=== PATIENT | female | born 1975 | race Caucasian/White ===

== ENCOUNTER 2016-06-29 13:50 | Emergency (ER) | payer BC ==
[2016-06-29 14:32] VITALS: BP 138/102
[2016-06-29] MEDS ORDERED: Ibuprofen TAB* 400 MG PO ONE (15:35)
--- NOTE | 2016-06-29 16:35 | RAD ---
INDICATION: Left foot injury. COMPARISON: Comparison is made with a prior study from April 08, 2013. TECHNIQUE: 3 views of the left foot were obtained. FINDINGS: There is soft tissue swelling present over the dorsal aspect of the midfoot. There is cortical irregularity and mild sclerosis and decreased density present at the base of the second metatarsal likely representing chronic change although a nondisplaced fracture cannot be excluded. There are postsurgical changes present. The patient is status post osteotomy of the first proximal phalanx. The osteotomy site appears healed there is a single surgical screw present. There are 2 surgical screws spanning the first tarsometatarsal joint. 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 IMPRESSION: 1. CORTICAL IRREGULARITY AND HETEROGENEOUS BONE DENSITY AT THE BASE OF THE SECOND METATARSAL LIKELY REPRESENTING CHRONIC CHANGE ALTHOUGH A NONDISPLACED FRACTURE CANNOT BE EXCLUDED. 2. POST SURGICAL CHANGES.
--- NOTE | 2016-06-29 17:07 | UC ---
Lower Extremity/Ankle HPI - HPI Summary HPI Summary: HISTORY OF (BILATERAL) BUNION SURGERY ON (1ST METATARSAL OF) LEFT FOOT IN 2014. SINCE THAT TIME HAD HAD HISTORY OF MULTIPLE FOOT FRACTURES DUE TO INSTABILITY. YESTERDAY AT 6PM, TWISTED ON FOOT, HAD PAIN IN MIDFOOT AND SWELLING. NO BRUISING. PAIN WITH WEIGHT BEARING. - History of Current Complaint Chief Complaint: UCLowerExtremity Stated Complaint: LEFT FOOT INJURY Time Seen by Provider: 06/29/16 15:18 Hx Obtained From: Patient Hx Last Menstrual Period: 2011 Onset/Duration: Sudden Onset, Lasting Hours, Still Present Severity Initially: Severe Severity Currently: Moderate Aggravating Factor(s): Standing, Ambulation Alleviating Factor(s): Rest, Elevation, Ice Able to Bear Weight: Yes - Risk Factors Gout Risk Factors: Negative DVT Risk Factors: Negative Septic Arthritis Risk Factor: Negative - Allergies/Home Medications Allergies/Adverse Reactions: Allergies Allergy/AdvReac Type Severity Reaction Status Date / Time Erythromycin Allergy Severe Hives Verified 06/29/16 14:25 Penicillins Allergy Severe Hives Verified 06/29/16 14:25 Sulfa Drugs AdvReac GI pain Verified 06/29/16 14:25 moses peppers Allergy Severe Anaphylatic Uncoded 06/29/16 14:25 Shock Home Medications: Home Medications Ginseng [Multi Ginseng] 1 cap PO BID 06/29/16 [History Confirmed 06/29/16] Lamotrigine [Lamictal] 50 mg PO BID 06/29/16 [History Confirmed 06/29/16] Milk Fwtngny-Ohjlzrulh-Tbhvhw- [Milk Thistle Xtra] 1 cap PO BID 06/29/16 [ History Confirmed 06/29/16] Ranitidine TAB (NF) [Zantac TAB (NF)] 150 mg PO BID 06/29/16 [History Confirmed 06/29/16] PMH/Surg Hx/FS Hx/Imm Hx Previously Healthy: Yes Cardiovascular History Of: Reports: Hypertension - Surgical History Surgical History: Yes Surgery Procedure, Year, and Place: sinus surgery/had CSF leak/then had repeat sinus surgery. bunionectomy. ablation - Family History Known Family History: Positive: None, Respiratory Disease - TOBACCO ABUSE - Social History Occupation: Disabled Lives: With Family Alcohol Use: Rare Substance Use Type: None Smoking Status (MU): Heavy Every Day Tobacco Smoker Amount Used/How Often: 1 pack daily When Did the Patient Quit Smoking/Using Tobacco: 10 days ago Cessation Counseling: Patient Advised to Stop - Immunization History Most Recent Influenza Vaccination: not this season Review of Systems Constitutional: Negative Skin: Negative Eyes: Negative ENT: Negative Respiratory: Negative Cardiovascular: Negative Gastrointestinal: Negative Genitourinary: Negative Motor: Negative Neurovascular: Negative Musculoskeletal: Arthralgia - LEFT 2ND METATARSAL Neurological: Negative Psychological: Negative All Other Systems Reviewed And Are Negative: Yes Physical Exam Triage Information Reviewed: Yes Appearance: Well-Appearing, No Pain Distress, Well-Nourished Vital Signs: Initial Vital Signs Temp 987.5 F 06/29/16 14:25 Pulse 100 06/29/16 14:25 Resp 20 06/29/16 14:25 BP 138/102 06/29/16 14:25 Pulse Ox 100 06/29/16 14:25 Vital Signs Reviewed: Yes Eye Exam: Normal Eyes: Positive: Conjunctiva Clear ENT Exam: Normal ENT: Positive: Normal ENT inspection, Hearing grossly normal, Pharynx normal, TMs normal Dental Exam: Normal Neck exam: Normal Neck: Positive: Supple, Nontender, No Lymphadenopathy Respiratory Exam: Normal Respiratory: Positive: Chest non-tender, Lungs clear, Normal breath sounds, No respiratory distress, No accessory muscle use Cardiovascular Exam: Normal Cardiovascular: Positive: RRR, No Murmur, Pulses Normal Abdominal Exam: Normal Abdomen Description: Positive: Nontender, No Organomegaly Musculoskeletal: Positive: ROM Intact, No Edema, Strength Limited @ - LEFT FOOT , Other: - TENDERNESS LEFT 2ND METATARSAL Neurological Exam: Normal Psychological Exam: Normal Skin Exam: Normal Diagnostics - Laboratory Diagnostic Studies Completed/Ordered: FOOT XRAY: CORTICAL IRREGULARITY OF SECOND METATARSAL LIKELY REPRESENTING CHRONIC CHANGE BUT NONDISPLACED FRACTURE CANNOT BE EXCLUDED Lower Extremity Course/Dx - Differential Dx/Diagnosis Differential Diagnosis/HQI/PQRI: Sprain, Strain Provider Diagnoses: LEFT SECOND METATARSAL CLOSED NONDISPLACED FRACTURE Discharge - Discharge Plan Condition: Stable Disposition: HOME Prescriptions: HYDROcodone/ACETAMIN 5-325 MG* [[place] 5-325 TAB*] 1 tab PO BID PRN #10 tab MDD TWO TABS PRN Reason: Pain Patient Education Materials: Foot Fracture in Adults (ED) Referrals: Wander Espinosa MD [Medical Doctor] - Larissa England [Primary Care Provider] -
== END 2016-06-29 17:19 | disposition home or self-care (01) ==
LOC: UCCORT 13:50
DX: S92.325A Nondisplaced fracture of second metatarsal bone, left foot, initial encounter for closed fracture (principal); X50.0XXA Overexertion from strenuous movement or load, initial encounter; I10 Essential (primary) hypertension; Z71.6 Tobacco abuse counseling; F17.210 Nicotine dependence, cigarettes, uncomplicated; Z88.0 Allergy status to penicillin; Z88.1 Allergy status to other antibiotic agents; Z88.2 Allergy status to sulfonamides; Z91.018 Allergy to other foods
CPT/HCPCS: 99213; A9270-GY; G0463

== ENCOUNTER 2017-10-19 11:00 | Emergency (ER) | payer BC, OTHER ==
[2017-10-19 11:44] VITALS: BP 132/83
--- NOTE | 2017-10-19 13:02 | RAD ---
Indication: Left ankle injury and fall 3 views of left ankle demonstrate soft tissue swelling laterally. No fracture is noted. Prior internal fixation first digit is noted. IMPRESSION: Soft tissue swelling laterally without fracture.
--- NOTE | 2017-10-19 13:03 | RAD ---
Indication: Left foot pain. 3 views of left foot demonstrates fusion of the first digit at the first tarsometatarsal joint and proximal phalanx. Degenerative changes of the second tarsometatarsal joint is noted. No recent fracture is noted. IMPRESSION: Postoperative changes of the first digit and likely degenerative changes of the second tarsometatarsal joint without evidence of recent fracture.
--- NOTE | 2017-10-19 13:50 | ED ---
Lower Extremity - HPI Summary HPI Summary: 42 yo WF c/o left ankle and foot pain after tripping over an jadyn tray and injuring her left ankle and foot, now swollen - History of Current Complaint Chief Complaint: UCLowerExtremity Stated Complaint: LEFT ANKLE COMP Time Seen by Provider: 10/19/17 12:37 Hx Obtained From: Patient Hx Last Menstrual Period: unknown, ablation Mechanism Of Injury: Blunt Trauma Onset of Pain: Hours Onset/Duration: Still Present Severity Currently: Moderate Pain Intensity: 10 Pain Scale Used: 0-10 Numeric Timing: Lasting Hours Character Of Pain: Sharp, Throbbing Associated Signs And Symptoms: Positive: Swelling, Redness, Bruising, Weakness Aggravating Factor(s): Standing, Ambulation Alleviating Factor(s): Rest Able to Bear Weight: Yes - Allergies/Home Medications Allergies/Adverse Reactions: Allergies Allergy/AdvReac Type Severity Reaction Status Date / Time erythromycin base Allergy Hives Verified 10/19/17 11:36 Penicillins Allergy Hives Verified 10/19/17 11:36 Sulfa (Sulfonamide Allergy GI Upset Verified 10/19/17 11:36 Antibiotics) doxycycline AdvReac GI Upset Verified 10/19/17 11:39 moses peppers Allergy Severe Anaphylatic Uncoded 06/29/16 14:25 Shock Home Medications: Home Medications Gabapentin CAP(*) [Neurontin 300 CAP(*)] 300 mg PO TID 10/19/17 [History Confirmed 10/19/17] Ibuprofen TAB* [Motrin TAB* 800 MG] 800 mg PO ONCE 10/19/17 [History Confirmed 10/19/17] Iron [Iron] 90 mg PO DAILY 10/19/17 [History Confirmed 10/19/17] PMH/Surg Hx/FS Hx/Imm Hx Previously Healthy: Yes Cardiovascular History: Reports: Hx Hypertension - Surgical History Surgery Procedure, Year, and Place: sinus surgery/had CSF leak/then had repeat sinus surgery. bunionectomy. ablation Infectious Disease History: No Infectious Disease History: Denies: Hx Clostridium Difficile, Hx Hepatitis, Hx Human Immunodeficiency Virus (HIV), Hx of Known/Suspected MRSA, Hx Shingles, Hx Tuberculosis, Hx Known/ Suspected VRE, Hx Known/Suspected VRSA, History Other Infectious Disease, Traveled Outside the [place] in Last 30 Days - Family History Known Family History: Positive: None, Respiratory Disease - TOBACCO ABUSE - Social History Alcohol Use: Daily Alcohol Amount: 2 beers Substance Use Type: Reports: None Smoking Status (MU): Heavy Every Day Tobacco Smoker Type: Cigarettes Amount Used/How Often: 1 pack daily Review of Systems Constitutional: Negative Positive: Fever Eyes: Negative ENT: Negative Cardiovascular: Negative Respiratory: Negative Gastrointestinal: Negative Positive: Decreased ROM, Edema Positive: Bruising Neurological: Negative Psychological: Normal All Other Systems Reviewed And Are Negative: Yes Physical Exam Triage Information Reviewed: Yes Vital Signs On Initial Exam: Initial Vitals Temp Pulse Resp BP Pulse Ox 37.1 C 88 15 132/83 98 10/19/17 11:36 10/19/17 11:36 10/19/17 11:36 10/19/17 11:36 10/19/17 11:36 Vital Signs Reviewed: Yes Skin: Positive: Warm Head/Face: Positive: Normal Head/Face Inspection Eyes: Positive: Normal ENT: Positive: Normal ENT inspection Respiratory/Lung Sounds: Positive: Clear to Auscultation Cardiovascular: Positive: Normal Musculoskeletal: Positive: Normal, Pain @, Edema Left - ankle and contusion on left lateral malleolus, NVI Psychiatric: Positive: Normal AVPU Assessment: Alert Diagnostics - Vital Signs Vital Signs Temp Pulse Resp BP Pulse Ox 10/19/17 11:36 37.1 C 88 15 132/83 98 - Laboratory Lab Statement: Any lab studies that have been ordered have been reviewed, and results considered in the medical decision making process. Lower Extremity Course/Dx - Course Assessment/Plan: XR of left foot and ankle neg for fx. Difficulty bearing weight- CAM boot and crutches - Diagnoses Provider Diagnoses: Ankle and foot joint derangement, Contusion of left ankle or foot Discharge - Sign-Out/Discharge Documenting (check all that apply): Discharge/Admit/Transfer - Discharge Plan Condition: Stable Disposition: HOME Patient Education Materials: Ankle Sprain (ED), Swollen Joint (ED) Referrals: Larissa England [Primary Care Provider] - - Billing Disposition and Condition Condition: STABLE Disposition: HOME
== END 2017-10-19 13:48 | disposition home or self-care (01) ==
LOC: UCCORT 11:00
DX: S99.912A Unspecified injury of left ankle, initial encounter (principal); S99.922A Unspecified injury of left foot, initial encounter; S90.02XA Contusion of left ankle, initial encounter; S90.32XA Contusion of left foot, initial encounter; W22.8XXA Striking against or struck by other objects, initial encounter; Y93.9 Activity, unspecified; Y92.9 Unspecified place or not applicable; Z88.1 Allergy status to other antibiotic agents; Z88.0 Allergy status to penicillin; Z88.2 Allergy status to sulfonamides; Z91.018 Allergy to other foods
CPT/HCPCS: 99213; G0463

== ENCOUNTER 2018-06-12 15:05 | Emergency (ER) | payer OTHER ==
[2018-06-12 16:34] VITALS: BP 118/89
--- NOTE | 2018-06-12 16:36 | UC ---
Respiratory Complaint HPI - History of Current Complaint Chief Complaint: UCRespiratory Stated Complaint: COUGH Time Seen by Provider: 06/12/18 16:25 Hx Last Menstrual Period: EMDOMETRIAL ABLASION 2011 Pain Intensity: 7 - Allergies/Home Medications Allergies/Adverse Reactions: Allergies Allergy/AdvReac Type Severity Reaction Status Date / Time erythromycin base Allergy Hives Verified 06/12/18 16:24 Penicillins Allergy Hives Verified 06/12/18 16:24 Sulfa (Sulfonamide Allergy GI Upset Verified 06/12/18 16:24 Antibiotics) doxycycline AdvReac GI Upset Verified 06/12/18 16:24 moses peppers Allergy Severe Anaphylatic Uncoded 06/12/18 16:24 Shock Home Medications: Home Medications Lisinopril/HCTZ 03/21.5(NF) [Zestoretic 03/21.(NF)] 1 tab PO DAILY 06/12/18 [ History Confirmed 06/12/18] PMH/Surg Hx/FS Hx/Imm Hx - Surgical History Surgical History: Yes Surgery Procedure, Year, and Place: sinus surgery/had CSF leak/then had repeat sinus surgery. bunionectomy. ablation - Family History Known Family History: Positive: None, Respiratory Disease - TOBACCO ABUSE - Social History Alcohol Use: Rare Alcohol Amount: 2 beers Substance Use Type: None Smoking Status (MU): Heavy Every Day Tobacco Smoker Type: Cigarettes Amount Used/How Often: 1 pack daily Have You Smoked in the Last Year: Yes When Did the Patient Quit Smoking/Using Tobacco: 10 days ago Household Exposure Type: Cigarettes - Immunization History Most Recent Influenza Vaccination: not this season Physical Exam Vital Signs: Initial Vital Signs Temp 98.2 F 06/12/18 16:26 Pulse 93 06/12/18 16:26 Resp 20 06/12/18 16:26 BP 118/89 06/12/18 16:26 Pulse Ox 99 06/12/18 16:26 UC Diagnostic Evaluation - Laboratory O2 Sat by Pulse Oximetry: 99 Respiratory Course/Dx - Course Course Of Treatment: 1 week 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 w/ post- tussive vomiting. rapid strep neg. Discharge - Sign-Out/Discharge Documenting (check all that apply): Patient Departure All imaging exams completed and their final reports reviewed: No Studies - Discharge Plan Condition: Good Disposition: HOME Prescriptions: Albuterol HFA INHALER* [Ventolin HFA Inhaler*] 2 puff INH Q6H PRN #1 mdi PRN Reason: Cough Benzonatate CAP* [Tessalon 100 MG CAP*] 100 mg PO TID PRN 3 Days #9 cap PRN Reason: Cough Patient Education Materials: Acute Bronchitis (ED) Referrals: Larissa Engalnd [Primary Care Provider] - - Billing Disposition and Condition Condition: GOOD Disposition: Home
== END 2018-06-12 17:09 | disposition home or self-care (01) ==
LOC: UCCORT 15:05
DX: R05 Cough (principal); R11.10 Vomiting, unspecified; Z88.0 Allergy status to penicillin; Z88.1 Allergy status to other antibiotic agents; Z88.2 Allergy status to sulfonamides; F17.210 Nicotine dependence, cigarettes, uncomplicated
CPT/HCPCS: 99212; G0463

== ENCOUNTER 2019-09-05 20:07 | Emergency (ER) | payer OTHER ==
[2019-09-05 20:22] VITALS: BP 106/67
[2019-09-05] MEDS ORDERED: Clarithromycin TAB* 500 MG PO ONE (20:37)
--- NOTE | 2019-09-05 20:38 | UC ---
Throat Pain/Nasal Rony HPI - HPI Summary HPI Summary: C/O sore throat, pain on the right side under the jaw with tenderness and swelling. No fevers. H/O tonsillitis. - History of Current Complaint Chief Complaint: UCRespiratory Stated Complaint: SORE THROAT/ Hx Obtained From: Patient Hx Last Menstrual Period: EMDOMETRIAL ABLASION 2011 ?: No Onset/Duration: Sudden Onset, Lasting Days - 3, Still Present Severity: Moderate Pain Intensity: 8 Cough: None Associated Signs & Symptoms: Positive: Negative Related History: Smoking - Epiglottits Risk Factors Epiglottis Risk Factors: Negative - Allergies/Home Medications Allergies/Adverse Reactions: Allergies Allergy/AdvReac Type Severity Reaction Status Date / Time erythromycin base Allergy Hives Verified 09/05/19 20:17 Penicillins Allergy Hives Verified 09/05/19 20:17 Sulfa (Sulfonamide Allergy GI Upset Verified 09/05/19 20:17 Antibiotics) doxycycline AdvReac GI Upset Verified 09/05/19 20:17 moses peppers Allergy Severe Anaphylatic Uncoded 09/05/19 20:17 Shock Home Medications: Home Medications FLUoxetine CAP* [Prozac CAP*] 240 mg PO DAILY 12/20/12 [History Confirmed ] Pravastatin Sodium 10 mg PO BEDTIME 11/12/13 [History Confirmed 09/05/19] Gabapentin CAP(*) [Neurontin 300 CAP(*)] 400 mg PO QID 10/19/17 [History Confirmed 09/05/19] Lisinopril/HCTZ 10/12.5(NF) [Zestoretic 10/12.5(NF)] 1 tab PO DAILY 06/12/18 [ History Confirmed 09/05/19] Clarithromycin 500 mg PO BID #14 tablet 09/05/19 [Rx] Cyclobenzaprine TAB* [Flexeril 10 MG TAB*] 10 mg PO BID PRN 09/05/19 [History Confirmed 09/05/19] lamoTRIgine [Lamotrigine] 125 mg PO BID 09/05/19 [History Confirmed 09/05/19] PMH/Surg Hx/FS Hx/Imm Hx Endocrine History: Dyslipidemia Cardiovascular History: Hypertension Psychological History: Bipolar Disorder - Surgical History Surgical History: Yes Surgery Procedure, Year, and Place: sinus surgery/had CSF leak/then had repeat sinus surgery. bunionectomy. ablation - Family History Known Family History: Positive: Hypertension, Diabetes, Respiratory Disease - TOBACCO ABUSE - Social History Occupation: Disabled Lives: With Family Alcohol Use: None Alcohol Amount: 2 beers Substance Use Type: None Smoking Status (MU): Heavy Every Day Tobacco Smoker Type: Cigarettes Amount Used/How Often: 1 pack daily Have You Smoked in the Last Year: Yes When Did the Patient Quit Smoking/Using Tobacco: 10 days ago Household Exposure Type: Cigarettes - Immunization History Most Recent Influenza Vaccination: not this season Review of Systems All Other Systems Reviewed And Are Negative: Yes ENT: Positive: Sore Throat - on the right side. Physical Exam Triage Information Reviewed: Yes Appearance: Well-Appearing, Well-Nourished, Pain Distress - mild, with swallowing Vital Signs: Initial Vital Signs Temp 98 F 09/05/19 20:17 Pulse 86 09/05/19 20:17 Resp 16 09/05/19 20:17 BP 106/67 09/05/19 20:17 Pulse Ox 98 09/05/19 20:17 Vital Signs Reviewed: Yes Eyes: Positive: Conjunctiva Clear ENT: Positive: Pharynx normal, Nasal congestion - with allergic changes, TMs normal Neck: Positive: Tenderness @ - right submandibular node, Enlarged Nodes @ - Large, 2.5cm tender lymph node right submandibular Respiratory Exam: Normal Cardiovascular Exam: Normal Musculoskeletal Exam: Normal Neurological Exam: Normal Psychological Exam: Normal Skin: Positive: Rashes - excoriations on face. Throat Pain/Nasal Course/Dx - Differential Dx/Diagnosis Differential Diagnosis/HQI/PQRI: Otitis Media, Pharyngitis, Tonsillitis, URI Provider Diagnosis: Acute cervical adenitis Discharge ED - Sign-Out/Discharge Documenting (check all that apply): Patient Departure All imaging exams completed and their final reports reviewed: No Studies - Discharge Plan Condition: Stable Disposition: HOME Prescriptions: Clarithromycin 500 mg PO BID #14 tablet Patient Education Materials: Adenitis (ED) Referrals: Larissa England [Primary Care Provider] - - Billing Disposition and Condition Condition: STABLE Disposition: Home
== END 2019-09-05 20:46 | disposition home or self-care (01) ==
LOC: UCCORT 20:07
DX: L04.0 Acute lymphadenitis of face, head and neck (principal); E78.5 Hyperlipidemia, unspecified; I10 Essential (primary) hypertension; F31.9 Bipolar disorder, unspecified; Z79.899 Other long term (current) drug therapy; Z88.1 Allergy status to other antibiotic agents; Z88.0 Allergy status to penicillin; Z88.2 Allergy status to sulfonamides; Z91.018 Allergy to other foods; Z87.891 Personal history of nicotine dependence
CPT/HCPCS: 99212; A9270-GY; G0463

== ENCOUNTER 2019-10-04 14:58 | Emergency (ER) | payer OTHER ==
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
[2019-10-04 15:40] VITALS: BP 131/81
[2019-10-04] MEDS ORDERED: Acetaminophen TAB* 325 MG PO ONE (15:49)
== END 2019-10-04 16:40 | disposition home or self-care (01) ==
LOC: UCCORT 14:58
DX: S39.012A Strain of muscle, fascia and tendon of lower back, initial encounter (principal); W01.0XXA Fall on same level from slipping, tripping and stumbling without subsequent striking against object, initial encounter; Y93.E5 Activity, floor mopping and cleaning; Y92.9 Unspecified place or not applicable; M41.27 Other idiopathic scoliosis, lumbosacral region; M51.37 Other intervertebral disc degeneration, lumbosacral region; M47.817 Spondylosis without myelopathy or radiculopathy, lumbosacral region; E78.5 Hyperlipidemia, unspecified; I10 Essential (primary) hypertension; Z79.899 Other long term (current) drug therapy; Z88.1 Allergy status to other antibiotic agents; Z88.0 Allergy status to penicillin; Z88.2 Allergy status to sulfonamides; Z91.018 Allergy to other foods; Z87.891 Personal history of nicotine dependence
CPT/HCPCS: 72110; 99212; A9270-GY; G0463